=== PATIENT | male | born 1940 | race Caucasian/White ===

== ENCOUNTER 2023-04-01 10:55 | Emergency (ER) | payer MEDICARE, OTHER, SELFPAY ==
[2023-04-01] VITALS (20 sets, daily range): BP systolic 124–150; BP diastolic 63–77; PULSE 60–62; RESP 14–28; TEMP 36.9; O2SAT 93–100; BMI 32.2
--- NOTE | 2023-04-01 11:11 | ECG_ITS ---
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
[2023-04-01] MEDS: 0.9 % SODIUM CHLORIDE 1,000 ML 999 ML IV (11:44)
--- NOTE | 2023-04-01 11:48 | ED_ITS ---
HPI - Syncope General Chief Complaint: Syncope Stated Complaint: LIGHT-HEADED/CONFUSION Time Seen by Provider: 04/01/23 11:00 Source: patient Source comment: PATIENT Mode of arrival: ambulance Limitations: no limitations History of Present Illness HPI narrative: Patient had a witnessed syncopal episode at home. He woke this morning as he normally does and felt fine but he noticed his BP, which is usually 130s systolic, was 113systolic. He got up to start his day and he and the ate breakfast together. He got up from the table and took his dishes to the sink. That is when he felt everything just go black . Apparently the lowered the patient to a chair and then to the floor and prevented injury. She called EMS. When EMS arrived the patient woke and since then has been without complaint. The did not see any shaking or seizure-like activity. Patient has a pacemaker, cardiac stents, had a cardiac arrest in [place]. he recently changed from Dr Shen in [place] to a factory expert in [place], who saw the patient last week and placed the patient on a water pill because of leg swelling. The leg swelling has now dissipated. he wonders if the water pill caused his BP to drop. Related Data Home Medications Medication Instructions Recorded Confirmed amiodarone 200 mg tablet 300 mg PO Q24H 04/01/23 04/01/23 carvedilol 6.25 mg tablet 6.25 mg PO Q12H 04/01/23 04/01/23 furosemide 20 mg tablet 20 mg PO DAILY 04/01/23 04/01/23 lisinopril 2.5 mg tablet 2.5 mg PO DAILY 04/01/23 04/01/23 spironolactone 25 mg tablet 25 mg PO DAILY 04/01/23 04/01/23 tamsulosin 0.4 mg capsule 0.4 mg PO Q24H 04/01/23 04/01/23 Allergies Allergy/AdvReac Type Severity Reaction Status Date / Time No Known Drug Allergies Allergy Verified 04/01/23 11:09 [facility] Social History Smoking status: Never smoker Exam Narrative Exam Narrative: Nurses notes and vital signs reviewed and patient is not hypoxic. afebrile General: Well-appearing and in no apparent distress. Skin: Warm, dry, no pallor noted. No rash. Head: Normocephalic, atraumatic. Neck: Supple, non-tender. Eye: Pupils are equal, round and EOMI. No scleral icterus. Ears, Nose, Mouth, and Throat: Oral mucosa is moist, no oral or facial injury Cardiovascular: Regular Rate and Rhythm without murmur, gallop or rub. Respiratory: No accessory muscle use or respiratory distress. Lungs are clear to auscultation, no wheezing, rales or rhonchi Chest Wall: no tenderness Back: No midline thoracic or lumbar vertebral tenderness. No CVA tenderness Musculoskeletal: normal ROM, no calf or popliteal tenderness, no lower extremity edema/swelling GI: Abdomen is soft, non-distended. Normal bowel sounds. No masses appreciated. No tenderness to palpation. No rebound, guarding, or rigidity noted. Neurological: A&O x4. No cranial nerve dysfunction observed. No truncal ataxia. Moves all extremities. Sensation intact. Psychiatric: Cooperative and interactive. Normal mood and affect. Constitutional Vital Signs, click to edit/add: Last Vital Signs Temp 98.4 F 04/01/23 11:03 Pulse 60 04/01/23 11:40 Resp 18 04/01/23 11:40 BP 139/64 04/01/23 11:31 Pulse Ox 96 04/01/23 11:40 O2 Del Method Room Air 04/01/23 11:24 Course Vital Signs Vital signs: Vital Signs Temperature 98.4 F 04/01/23 11:03 Pulse Rate 61 04/01/23 11:03 Respiratory Rate 21 04/01/23 11:03 Blood Pressure 150/77 H 04/01/23 11:03 Pulse Oximetry 100 04/01/23 11:03 Oxygen Delivery Method Room Air 04/01/23 11:03 Temperature 98.4 F 04/01/23 11:03 Pulse Rate 60 04/01/23 11:40 Respiratory Rate 18 04/01/23 11:40 Blood Pressure 139/64 04/01/23 11:31 Pulse Oximetry 96 04/01/23 11:40 Oxygen Delivery Method Room Air 04/01/23 11:24 MDM - Syncope MDM Narrative Medical decision making narrative: Patient was placed on equipment monitor phototypesetting and EKG obtained. Blood drawn and sent for evaluation. statics were negative. The patient did receive normal saline IV fluid, 1 L. His workup was otherwise unremarkable with normal BNP and troponin. Pacemaker appears to be working based on EKG as well as equipment monitor phototypesetting evaluation. Patient does not have his pacemaker information with him. He says he has it at home. The patient is feeling back to normal. He was discharged home with recommendation that he call to have his pacemaker interrogated the Internet. He can follow-up with his factory expert. Emergency Department return if he worsens. Lab Data Attestation: I reviewed the patient's lab results. Labs: Lab Results 04/01/23 Range/Units 11:57 WBC 6.5 (4.0-11.0) 10^3/uL RBC 3.20 L (4.70-6.10) 10^6/uL Hgb 9.2 L (14.0-18.0) g/dL Hct 30.0 L (42.0-54.0) % MCV 93.8 (80.0-94.0) fL MCH 28.8 (25.9-34.0) pg MCHC 30.7 (29.9-35.2) g/dL RDW 14.6 (11.0-15.0) % Plt Count 130 L (150-450) 10^3/uL MPV 10.1 (9.5-13.5) fL Neut % (Auto) 47.1 (43.0-75.0) % Lymph % (Auto) 41.9 (20.5-60.0) % [place] % (Auto) 8.3 (1.7-12.0) % Eos % (Auto) 1.7 (0.9-7.0) % Baso % (Auto) 0.5 (0.2-2.0) % Neut # (Auto) 3.1 (1.4-6.5) 10^3/uL Lymph # (Auto) 2.7 (1.2-3.8) 10^3/uL [place] # (Auto) 0.5 (0.3-0.8) 10^3/uL Eos # (Auto) 0.1 (0.0-0.7) 10^3/uL Baso # (Auto) 0.0 (0.0-0.1) 10^3/uL Abs Immat Gran (auto) 0.03 (0.00-0.03) 10^3/uL Imm/Tot Granulo (auto) 0.5 (0.0-0.5) % Sodium 138 (136-145) mmol/L Potassium 4.2 (3.5-5.1) mmol/L Chloride 105 (98-107) mmol/L Carbon Dioxide 24.8 (21.0-32.0) mmol/L Anion Gap 12.4 BUN 32.0 H (7.0-18.0) mg/dL Creatinine 2.03 H (0.70-1.30) mg/dL Est GFR ( Amer) 38 L (>=60) Est GFR (Non-Af Amer) 32 L (>=60) BUN/Creatinine Ratio 15.8 Glucose 128 H (74-106) mg/dL Calcium 8.6 (8.5-10.1) mg/dL Total Bilirubin 0.2 (0.2-1.0) mg/dL AST 19 (15-37) U/L ALT 24 (16-63) U/L Alkaline Phosphatase 53 (46-116) U/L Troponin I High Sens 40.0 (4.0-76.1) pg/mL NT-Pro-B Natriuret Pep 239.0 (<=1800.0) pg/mL Total Protein 6.2 L (6.4-8.2) g/dL Albumin 3.1 L (3.4-5.0) g/dL Globulin 3.1 g/dL Albumin/Globulin Ratio 1.0 ECG Data Attestation: ?I have reviewed the pertinent ECG results. Interpretation: EKG interpretation: Emergency Department physician interpretation. Electronic atrial pacemaker. Discharge Plan Discharge Chief Complaint: Syncope Clinical Impression: Syncope Patient Disposition: Home, Self-Care Time of Disposition Decision: 13:16 Prescriptions / Home Meds: No Action amiodarone 200 mg tablet 300 mg PO Q24H carvedilol 6.25 mg tablet 6.25 mg PO Q12H furosemide 20 mg tablet 20 mg PO DAILY lisinopril 2.5 mg tablet 2.5 mg PO DAILY spironolactone 25 mg tablet 25 mg PO DAILY tamsulosin 0.4 mg capsule 0.4 mg PO Q24H Instructions: Syncope in Older Adults (ED) Stand Alone Forms: Portal Instructions Referrals: Ramírez Augustin DO [Primary Care Provider] - 1 week
[2023-04-01 12:07] LABS: Basophils Percent Auto 0.5 % (0.2-2.0); Eosinophils Absolute Auto 0.1 10^3/uL (0.0-0.7); Eosinophils Percent Auto 1.7 % (0.9-7.0); Hemoglobin 9.2 g/dL (14.0-18.0); Immature Granulocytes Abs Auto 0.03 10^3/uL (0.00-0.03); Immature Granulocytes Pct Auto 0.5 % (0.0-0.5); Lymphocytes Absolute Auto 2.7 10^3/uL (1.2-3.8); Lymphocytes Percent Auto 41.9 % (20.5-60.0); Mean Corpuscular HGB Conc 30.7 g/dL (29.9-35.2); Mean Corpuscular Hemoglobin 28.8 pg (25.9-34.0); Mean Corpuscular Volume 93.8 fL (80.0-94.0); Mean Platelet Volume 10.1 fL (9.5-13.5); Monocytes Absolute Auto 0.5 10^3/uL (0.3-0.8); Monocytes Percent Auto 8.3 % (1.7-12.0); Neutrophils Absolute Auto 3.1 10^3/uL (1.4-6.5); Neutrophils Percent Auto 47.1 % (43.0-75.0); Platelet Count 130 10^3/uL (150-450); Red Cell Distribution Width 14.6 % (11.0-15.0); White Blood Count 6.5 10^3/uL (4.0-11.0)
[2023-04-01 12:28] LABS: Alanine Aminotransferase 24 U/L (16-63); Albumin Level 3.1 g/dL (3.4-5.0); Alkaline Phosphatase 53 U/L (46-116); Anion Gap 12.4; Aspartate Amino Transferase 19 U/L (15-37); BUN Creatinine Ratio 15.8; Bilirubin Total 0.2 mg/dL (0.2-1.0); Calcium 8.6 mg/dL (8.5-10.1); Carbon Dioxide 24.8 mmol/L (21.0-32.0); Chloride 105 mmol/L (98-107); Estimated GFR (African America 38 (>=60); Estimated GFR (Non-African Ame 32 (>=60); Globulin 3.1 g/dL; Glucose 128 mg/dL (74-106); Potassium 4.2 mmol/L (3.5-5.1); Sodium 138 mmol/L (136-145); Total Protein 6.2 g/dL (6.4-8.2)
== END 2023-04-01 13:45 | disposition home or self-care (01) ==
PROVIDERS: Emergency Provider Emergency Medicine; PCP Family Medicine
DX: R55 Syncope and collapse (principal); Z95.0 Presence of cardiac pacemaker; Z95.5 Presence of coronary angioplasty implant and graft; Z86.74 Personal history of sudden cardiac arrest; Z79.899 Other long term (current) drug therapy
CPT/HCPCS: 36415; 36416; 80053; 83880; 84484; 85025; 93005; 96360; 96361; 99284

== ENCOUNTER 2023-04-27 16:25 | Emergency (ER) | payer MEDICARE, OTHER, SELFPAY ==
[2023-04-27] VITALS (23 sets, daily range): BP systolic 90–143; BP diastolic 48–74; PULSE 60–78; RESP 16–29; TEMP 36.7; O2SAT 94–100; BMI 32.6
--- NOTE | 2023-04-27 16:42 | ED_ITS ---
HPI - General Adult General Chief complaint: Chest Pain Stated complaint: CHEST PAIN Time Seen by Provider: 04/27/23 16:42 Source: patient Mode of arrival: Wheelchair Limitations: no limitations History of Present Illness HPI narrative: this patient's here with his complaining of chest pain. [place] he developed discomfort. He didn't feel good so he asked his to take him home. The discomfort continued to he came to the hospital. In July of this past year he had a cardiac catheterization and was told that he did not have any blockages. At that time he did have sudden cardiac arrest and was given a pacemaker defibrillator and is on antiarrhythmics. He was not discovered to have any coronary artery disease. He is here two weeks ago with a syncopal episode and was told to follow-up with his housekeeping lead but his said that they do not really hear back from the office. He describes a heaviness directly over the sternum radiating up into his left jaw. He feels weak and fatigued. He was seen immediately on arrival here. His 12-lead EKG shows a paced rhythm and possible old lateral/inferior wall myocardial infarction but that's largely due to the paced rhythm. He was placed on a monitor and IV was established and blood work was done. He did not take his arousal but he took all his other meds today. He is not on any aspirin. 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 Related Data Home Medications Medication Instructions Recorded Confirmed amiodarone 200 mg tablet 300 mg PO Q24H 04/01/23 04/01/23 carvedilol 6.25 mg tablet 6.25 mg PO Q12H 04/01/23 04/01/23 furosemide 20 mg tablet 20 mg PO DAILY 04/01/23 04/01/23 lisinopril 2.5 mg tablet 2.5 mg PO DAILY 04/01/23 04/01/23 spironolactone 25 mg tablet 25 mg PO DAILY 04/01/23 04/01/23 tamsulosin 0.4 mg capsule 0.4 mg PO Q24H 04/01/23 04/01/23 rivaroxaban 20 mg tablet (Xarelto) 20 mg PO Q24H 04/27/23 04/27/23 Allergies Allergy/AdvReac Type Severity Reaction Status Date / Time No Known Drug Allergies Allergy Verified 04/01/23 11:09 [facility] Social History Smoking status: Never smoker Exam Narrative Exam Narrative: patient awake alert moderately anxious appears uncomfortable. Vital signs are noted. Stat EKG showed a paced rhythm rate seventy-six. Constitutional skin is warm and dry he's not diaphoretic is not nauseated or vomiting. Eye examination shows mild pallor no conjunctivitis. Chest shows pacemaker noted. Heart sounds regular. There is no auscultatory arrhythmia. Respiratory his lungs are clear with no wheezes rales or rhonchi. Abdomen is benign there's no pulsatile masses no guarding rebound or rigidity. Pulses the extremities are strong and equal bilaterally. Neurological shows no focal motor or sensory deficits or complaints. Constitutional Vital Signs, click to edit/add: Last Vital Signs Temp 98.1 F 04/27/23 16:27 Pulse 72 04/27/23 18:50 Resp 17 04/27/23 18:50 BP 131/69 04/27/23 18:45 Pulse Ox 98 04/27/23 18:50 O2 Del Method Nasal Cannula 04/27/23 17:05 O2 Flow Rate 2 04/27/23 17:05 Course Vital Signs Vital signs: Vital Signs Temperature 98.1 F 04/27/23 16:27 Pulse Rate 76 04/27/23 16:27 Respiratory Rate 20 04/27/23 16:27 Blood Pressure 143/60 H 04/27/23 16:27 Pulse Oximetry 95 04/27/23 16:27 Oxygen Delivery Method Room Air 04/27/23 16:27 Temperature 98.1 F 04/27/23 16:27 Pulse Rate 72 04/27/23 18:50 Respiratory Rate 17 04/27/23 18:50 Blood Pressure 131/69 04/27/23 18:45 Pulse Oximetry 98 04/27/23 18:50 Oxygen Delivery Method Nasal Cannula 04/27/23 17:05 Oxygen Delivery Flow Rate 2 04/27/23 17:05 Medical Decision Making MDM Narrative Medical decision making narrative: this patient remained asymptomatic through the rest of his stay here after receiving the Toradol and nitrates. His serial cardiac enzymes are normal. Taken with the fact that his cardiac catheterization was completely normal in July this year with no required stenting or bypass intervention I don't believe that he has a coronary syndrome at this time is [id number] at time of discharge he says he feels great and would like to go home. I would like him nonetheless to follow-up with Dr. Silverman, his housekeeping lead. He'll return to the hospital at any time if he feels more symptoms Lab Data Labs: Lab Results 04/27/23 04/27/23 Range/Units 16:38 18:19 WBC 12.1 H (4.0-11.0) 10^3/uL RBC 3.56 L (4.70-6.10) 10^6/uL Hgb 10.0 L (14.0-18.0) g/dL Hct 32.2 L (42.0-54.0) % MCV 90.4 (80.0-94.0) fL MCH 28.1 (25.9-34.0) pg MCHC 31.1 (29.9-35.2) g/dL RDW 15.1 H (11.0-15.0) % Plt Count 157 (150-450) 10^3/uL MPV 10.2 (9.5-13.5) fL Neut % (Auto) 49.7 (43.0-75.0) % Lymph % (Auto) 39.8 (20.5-60.0) % [place] % (Auto) 7.7 (1.7-12.0) % Eos % (Auto) 2.0 (0.9-7.0) % Baso % (Auto) 0.6 (0.2-2.0) % Neut # (Auto) 6.0 (1.4-6.5) 10^3/uL Lymph # (Auto) 4.8 H (1.2-3.8) 10^3/uL [place] # (Auto) 0.9 H (0.3-0.8) 10^3/uL Eos # (Auto) 0.2 (0.0-0.7) 10^3/uL Baso # (Auto) 0.1 (0.0-0.1) 10^3/uL Abs Immat Gran (auto) 0.03 (0.00-0.03) 10^3/uL Imm/Tot Granulo (auto) 0.2 (0.0-0.5) % PT 11.9 H (9.0-11.6) sec INR 1.13 Sodium 138 (136-145) mmol/L Potassium 4.2 (3.5-5.1) mmol/L Chloride 103 (98-107) mmol/L Carbon Dioxide 24.4 (21.0-32.0) mmol/L Anion Gap 14.8 BUN 31.0 H (7.0-18.0) mg/dL Creatinine 1.77 H (0.70-1.30) mg/dL Est GFR ( Amer) 45 L (>=60) Est GFR (Non-Af Amer) 37 L (>=60) BUN/Creatinine Ratio 17.5 Glucose 97 (74-106) mg/dL Calcium 8.8 (8.5-10.1) mg/dL Troponin I High Sens 40.9 38.4 (4.0-76.1) pg/mL NT-Pro-B Natriuret Pep 364.0 (<=1800.0) pg/mL Discharge Plan Discharge Chief Complaint: Chest Pain Clinical Impression: Chest pain Patient Disposition: Home, Self-Care Time of Disposition Decision: 19:03 Prescriptions / Home Meds: No Action amiodarone 200 mg tablet 300 mg PO Q24H carvedilol 6.25 mg tablet 6.25 mg PO Q12H furosemide 20 mg tablet 20 mg PO DAILY lisinopril 2.5 mg tablet 2.5 mg PO DAILY spironolactone 25 mg tablet 25 mg PO DAILY tamsulosin 0.4 mg capsule 0.4 mg PO Q24H Xarelto 20 mg tablet 20 mg PO Q24H Additional Instructions: continue present medications, return for any problems Stand Alone Forms: Portal Instructions Referrals: Ramírez Augustin DO [Primary Care Provider] - 1 week
--- NOTE | 2023-04-27 16:44 | ECG_ITS ---
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
--- NOTE | 2023-04-27 16:44 | XR_ITS ---
The [address] [address] Patient Name: LINDA BOBBY MRN: [id number] date: 1940 Sex: M Assigned Patient Location: ER Current Patient Location: ER Accession/Order Number: [id number] Exam Date: 04/27/2023 16:53 Report Date: 04/27/2023 17:38 At the request of: JACEY JULIEN Procedure: XR chest 1V EXAM: XR chest 1V COMPARISON: 04/10/2021 CLINICAL INDICATION: Chest pain. FINDINGS: Left-sided AICD/pacemaker. Right portacatheter with tip terminating in the mid to upper SVC. Cardiomediastinal silhouette within normal limits. Low lung volumes. No focal consolidation. No pleural effusion. No pneumothorax. No evidence of acute osseous abnormality. Visualized upper abdomen grossly unremarkable. XR/XR chest 1V IMPRESSION: No acute findings. Electronically authenticated by: ZOHAIB JAVIER Date: 04/27/2023 17:38
[2023-04-27 16:49] LABS: Basophils Absolute Auto 0.1 10^3/uL (0.0-0.1); Basophils Percent Auto 0.6 % (0.2-2.0); Eosinophils Absolute Auto 0.2 10^3/uL (0.0-0.7); Hematocrit 32.2 % (42.0-54.0); Immature Granulocytes Abs Auto 0.03 10^3/uL (0.00-0.03); Immature Granulocytes Pct Auto 0.2 % (0.0-0.5); Lymphocytes Absolute Auto 4.8 10^3/uL (1.2-3.8); Lymphocytes Percent Auto 39.8 % (20.5-60.0); Mean Corpuscular HGB Conc 31.1 g/dL (29.9-35.2); Mean Corpuscular Hemoglobin 28.1 pg (25.9-34.0); Mean Corpuscular Volume 90.4 fL (80.0-94.0); Mean Platelet Volume 10.2 fL (9.5-13.5); Monocytes Absolute Auto 0.9 10^3/uL (0.3-0.8); Monocytes Percent Auto 7.7 % (1.7-12.0); Neutrophils Percent Auto 49.7 % (43.0-75.0); Platelet Count 157 10^3/uL (150-450); Red Blood Count 3.56 10^6/uL (4.70-6.10); Red Cell Distribution Width 15.1 % (11.0-15.0); White Blood Count 12.1 10^3/uL (4.0-11.0)
[2023-04-27] MEDS: ASPIRIN 81 MG TAB.CHEW 162 MG PO (16:51)
[2023-04-27] MEDS: MORPHINE SULFATE 4 MG/ML VIAL IV (16:52)
[2023-04-27] MEDS: NITROGLYCERIN IN 5 % DEXTROSE 50 MG/250 ML INFUS..BTL IV (16:52)
[2023-04-27 17:11] LABS: Anion Gap 14.8; BUN Creatinine Ratio 17.5; Calcium 8.8 mg/dL (8.5-10.1); Carbon Dioxide 24.4 mmol/L (21.0-32.0); Chloride 103 mmol/L (98-107); Estimated GFR (African America 45 (>=60); Estimated GFR (Non-African Ame 37 (>=60); Glucose 97 mg/dL (74-106); Potassium 4.2 mmol/L (3.5-5.1); Sodium 138 mmol/L (136-145); Troponin I High Sensitivity 40.9 pg/mL (4.0-76.1)
[2023-04-27] MEDS: KETOROLAC TROMETHAMINE 30 MG/ML VIAL IVP (17:20)
[2023-04-27 17:21] LABS: INR 1.13; Prothrombin Time 11.9 sec (9.0-11.6)
[2023-04-27] MEDS: 0.9 % SODIUM CHLORIDE 500 ML 300 ML IV (17:22)
--- NOTE | 2023-04-27 18:09 | PC.NURSE ---
during a hypotensive event Dr ordered a 300 ml bolus to be administered to patient. Only order set available was 500 ml bolus. Only had to administer 100 mls to achieve an adequate b/p.
[2023-04-27 18:40] LABS: Troponin I High Sensitivity 38.4 pg/mL (4.0-76.1)
== END 2023-04-27 19:15 | disposition home or self-care (01) ==
PROVIDERS: Emergency Provider Emergency Medicine Emergency Medical Services; PCP Family Medicine
DX: R07.9 Chest pain, unspecified (principal); Z86.74 Personal history of sudden cardiac arrest; Z95.810 Presence of automatic (implantable) cardiac defibrillator; Z79.899 Other long term (current) drug therapy; Z79.01 Long term (current) use of anticoagulants; Z85.72 Personal history of non-Hodgkin lymphomas
CPT/HCPCS: 36415; 71045; 80048; 83880; 84484; 85025; 85610; 93005; 96365; 96366; 96375; 99285

== ENCOUNTER 2023-08-17 16:26 | Outpatient (REF) | payer MEDICARE, OTHER, SELFPAY | END 2023-08-17 16:27 | disposition home or self-care (01) | LOC: LAB 16:26 | PROVIDERS: PCP Family Medicine; Visit Provider Urology | DX: N39.0 Urinary tract infection, site not specified (principal) | CPT/HCPCS: 87086; 87150; 87186 ==

== ENCOUNTER 2023-10-12 12:43 | Outpatient (REF) | payer MEDICARE, OTHER, SELFPAY ==
[2023-10-12 12:53] LABS: Hemoglobin 9.6 g/dL (14.0-18.0)
== END 2023-10-12 12:44 | disposition home or self-care (01) ==
LOC: LAB 12:43
PROVIDERS: PCP Family Medicine; Visit Provider Internal Medicine Nephrology
DX: N18.9 Chronic kidney disease, unspecified (principal); D63.1 Anemia in chronic kidney disease
CPT/HCPCS: 36415; 85018

== ENCOUNTER 2023-11-02 12:53 | Outpatient (REF) | payer MEDICARE, OTHER, SELFPAY ==
[2023-11-02 13:12] LABS: Potassium 5.5 mmol/L (3.5-5.1)
== END 2023-11-02 12:54 | disposition home or self-care (01) ==
LOC: LAB 12:53
PROVIDERS: PCP Family Medicine; Visit Provider Internal Medicine Nephrology
DX: E87.5 Hyperkalemia (principal)
CPT/HCPCS: 36415; 84132

== ENCOUNTER 2023-12-28 10:07 | Emergency (ER) | payer MEDICARE, OTHER, SELFPAY ==
[2023-12-28 10:18] VITALS: BP 87/53; PULSE 70; TEMP 36.6; O2SAT 96; BMI 17.7
[2023-12-28 10:24] VITALS: BP 101/62; O2SAT 99
--- NOTE | 2023-12-28 10:27 | XR_ITS ---
The [address] [address] Patient Name: LINDA BOBBY MRN: [id number] date: 1940 Sex: M Assigned Patient Location: ER Current Patient Location: ER Accession/Order Number: [id number] Exam Date: 12/28/2023 10:45 Report Date: 12/28/2023 11:25 At the request of: TIM ERICKSON Procedure: XR ribs LT min 3V w CXR1V EXAM: Left ribs HISTORY: The patient became dizzy and fell and landed on a tile floor and has left lower rib pain. TECHNIQUE: 8 views of the left ribs and chest were obtained. FINDINGS: There is a slightly displaced fracture of the anterior left 11th rib. No other fractures are clearly seen. There are no suspicious bone lesions. Soft tissues are normal. There is a small left pleural effusion. There is a right subclavian chest port central line and a right IJ double lumen central line. There is a left-sided pacemaker defibrillator. The lungs show chronic changes. XR/XR ribs LT min 3V w CXR1V IMPRESSION: Slightly displaced fracture of the anterior left 11th rib. No other definite acute rib injury. Chronic changes in both lungs, with a small left pleural effusion. Electronically authenticated by: MOMO BOLDEN Date: 12/28/2023 11:25
--- NOTE | 2023-12-28 10:27 | XR_ITS ---
The [address] [address] Patient Name: LINDA BOBBY MRN: [id number] date: 1940 Sex: M Assigned Patient Location: ER Current Patient Location: ED.MAIN Accession/Order Number: [id number] Exam Date: 12/28/2023 10:45 Report Date: 12/28/2023 11:23 At the request of: TIM ERICKSON Procedure: XR hip RT min 2V EXAM: Right hip HISTORY: The patient became dizzy and fell onto a child for and now has pain in the right hip. TECHNIQUE: 2 views of the right hip were obtained. FINDINGS: There is no evidence of fracture or dislocation. There are no suspicious bone lesions. There is over coverage of the right femoral head with at least mild degenerative changes in the right hip joint. Soft tissues are normal. XR/XR hip RT min 2V IMPRESSION: No acute findings. Mild degenerative changes in the hip joint. 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 Electronically authenticated by: MOMO BOLDEN Date: 12/28/2023 11:23
[2023-12-28 10:30] VITALS: BP 96/57
--- NOTE | 2023-12-28 10:41 | ED.FALL1 ---
HPI HPI - Fall General Chief Complaint: Fall Stated Complaint: LACERATION/FALL Time Seen by Provider: 12/28/23 10:13 Source: patient Mode of arrival: walk-in Limitations: no limitations History of Present Illness HPI Narrative: 83-year-old male presents for pain to his left ribs and right hip. He fell today injuring these areas. He also sustained a skin tear on the dorsum of his left hand. He cannot recall his last tetanus shot. No head injury and no neck pain or abdominal pain. Related Data Home Medications ?Medication ?Instructions ?Recorded ?Confirmed amiodarone 200 mg tablet 300 mg PO Q24H 04/01/23 12/28/23 tamsulosin 0.4 mg capsule 0.4 mg PO Q24H 04/01/23 12/28/23 acetaminophen 650 mg 650 mg PO Q12H PRN pain 12/28/23 12/28/23 tablet,extended release (Pain Relief (acetaminophen)) bupropion HCl 100 mg tablet 100 mg PO DAILY 12/28/23 12/28/23 diphenhydramine HCl 25 mg capsule 25 mg PO Q8H PRN sleep 12/28/23 12/28/23 (Benadryl) midodrine 10 mg tablet 5 mg PO TID 12/28/23 12/28/23 rivaroxaban 15 mg tablet (Xarelto) 15 mg PO DAILY 12/28/23 12/28/23 Allergies Allergy/AdvReac Type Severity Reaction Status Date / Time No Known Drug Allergies Allergy Verified 04/01/23 11:09 Opioid HPI Opioid Management Most Recent Pain and Opioid Data: Last Pain Scale 8 12/28/23 10:45 Review of Systems ROS Narrative A ten point review of systems is negative except as noted above. PFSH PFSH Social History Smoking status: Never smoker Exam Narrative Exam Narrative: Nurses note and vital signs reviewed and patient is not hypoxic. General: The patient appears in no apparent distress. Patient is resting comfortably on cart. Skin: Warm, dry, no pallor noted. There is no rash noted. Head: Normocephalic, atraumatic Eye: Normal conjunctiva, no drainage Ears, Nose, Mouth, and Throat: oral mucosa is moist. Nares patent. Cardiovascular: Regular Rate and Rhythm, paced rhythm Respiratory: Patient is in no distress, no accessory muscle use, lungs are clear to auscultation, no wheezing, rales or rhonchi. He has some tenderness to palpation of his left posterior lateral rib area. Back: non-tender GI: Soft and nontender Musculoskeletal: He has discomfort with range of motion of the right hip. No obvious deformity. Knee nontender. Neurological: A&O, normal speech Psychiatric: Cooperative Constitutional Vital Signs, click to edit/add: Last Vital Signs Temp 97.9 F 12/28/23 10:18 Pulse 70 12/28/23 10:18 Resp 18 12/28/23 10:18 BP 96/57 12/28/23 10:30 Pulse Ox 99 12/28/23 10:24 O2 Del Method Room Air 12/28/23 10:18 Course Vital Signs Vital signs: Vital Signs Temperature 97.9 F 12/28/23 10:18 Pulse Rate 70 12/28/23 10:18 Respiratory Rate 18 12/28/23 10:18 Blood Pressure 87/53 L 12/28/23 10:18 Pulse Oximetry 96 12/28/23 10:18 Oxygen Delivery Method Room Air 12/28/23 10:18 Temperature 97.9 F 12/28/23 10:18 Pulse Rate 70 12/28/23 10:18 Respiratory Rate 18 12/28/23 10:18 Blood Pressure 96/57 12/28/23 10:30 Pulse Oximetry 99 12/28/23 10:24 Oxygen Delivery Method Room Air 12/28/23 10:18 MDM - Fall MDM Narrative Medical decision making narrative: Hip x-rays no given he is able to ambulate and bear complete weight on his hip. At this point I do not suspect an occult fracture. He has 07/26 rib fracture and was given OPEP. Tylenol was recommended for pain. Treatment diagnosis and follow-up were discussed with the patient and his . Dressing applied to the hand as well. Differential Diagnosis Differential diagnosis: Likely other (Rib fracture, pneumothorax, hip contusion) ECG Data Attestation: I personally reviewed and interpreted this ECG as follows: (EKG on my interpretation shows paced rhythm) Discharge Plan Discharge Stand Alone Forms: Portal Instructions Chief Complaint: Fall Clinical Impression: Fracture, rib Patient Disposition: Home, Self-Care Time of Disposition Decision: 11:43 Condition: Good Mode of Transportation: Private Vehicle Prescriptions / Home Meds: No Action amiodarone 200 mg tablet 300 mg PO Q24H tamsulosin 0.4 mg capsule 0.4 mg PO Q24H bupropion HCl 100 mg tablet 100 mg PO DAILY acetaminophen [Pain Relief (acetaminophen)] 650 mg tablet extended release 650 mg PO Q12H PRN (Reason: pain) diphenhydramine HCl [Benadryl] 25 mg capsule 25 mg PO Q8H PRN (Reason: sleep) midodrine 10 mg tablet 5 mg PO TID Rx Instructions: do not give last dose of day after 6PM or within 4 hrs of bedtime Xarelto 15 mg tablet 15 mg PO DAILY Rx Instructions: must administer with evening meal Print Language: Croatian Instructions: Rib Fracture (ED) Referrals: Ramírez Augustin DO [Primary Care Provider] - 1 week
[2023-12-28 12:14] VITALS: BP 110/8; PULSE 70; O2SAT 96
--- NOTE | 2023-12-28 13:52 | ECG_ITS ---
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
== END 2023-12-28 12:15 | disposition home or self-care (01) ==
PROVIDERS: Emergency Provider Emergency Medicine; PCP Family Medicine
DX: S22.32XA Fracture of one rib, left side, initial encounter for closed fracture (principal); W19.XXXA Unspecified fall, initial encounter
CPT/HCPCS: 71101; 73502; 93005; 94667; 99284